=== PATIENT | male | born 1970 | race Caucasian/White ===

== ENCOUNTER 2023-08-20 16:14 | Emergency (ER) | payer OTHER, SELFPAY ==
[2023-08-20 16:20] VITALS: BP 166/97; PULSE 83; RESP 20; TEMP 37.2; O2SAT 96; BMI 37.7
--- NOTE | 2023-08-20 16:23 | ED.HEATRA1 ---
HPI - Head Injury General Chief complaint: Wound/Laceration Stated complaint: HEAD INJURY Time Seen by Provider: 08/20/23 16:22 History of Present Illness HPI Narrative: Patient is a 53-year-old male who presents to the emergency department for the evaluation of a laceration to the top of the head. Patient is an employee at a local [employer], he states a tub came down and hit him on the top of the head. He had no loss of consciousness. He denies visual changes, neck pain, nausea or vomiting. No peripheral paresthesias. No medications taken prior to arrival. He is on no blood thinners. Unknown last tetanus. Related Data Home Medications Medication Instructions Recorded Confirmed No Known Home Medications 08/20/23 08/20/23 Allergies Allergy/AdvReac Type Severity Reaction Status Date / Time No Known Drug Allergies Allergy Verified 08/20/23 16:23 Review of Systems ROS Constitutional Denies: fever or chills Ears, nose, mouth, and throat Denies: throat pain Cardiovascular Denies: chest pain Respiratory Denies: cough Gastrointestinal Denies: nausea or vomiting Musculoskeletal Denies: back pain, neck pain, extremity pain, extremity swelling or joint pain Integumentary/Breast Denies: rash Neurological Denies: headache, numbness in extremities or dizziness Endocrine Denies: excessive urination Hematologic/Lymphatic Denies: easy bruising Exam Narrative Exam Narrative: Gen.: Awake, alert, in no distress Head: Normocephalic, 6 cm laceration to the top of the head, laceration is oblique in the skin, minimal subcutaneous tissue exposure. No active bleeding. ENT: Moist mucous membranes, no dental injury; C-spine nontender Respiratory: No respiratory distress, lungs clear bilaterally Extremities: Moves extremities equally Psych: Normal mood and affect Neuro: No focal neuro deficit Skin: Warm, dry Constitutional Vital Signs, click to edit/add: Last Vital Signs Temp 98.9 F 08/20/23 16:20 Pulse 74 08/20/23 17:12 Resp 14 08/20/23 17:12 BP 152/88 H 08/20/23 17:12 Pulse Ox 97 08/20/23 17:12 O2 Del Method Room Air 08/20/23 17:12 Course Vital Signs Vital signs: Vital Signs Temperature 98.9 F 08/20/23 16:20 Pulse Rate 83 08/20/23 16:20 Respiratory Rate 20 08/20/23 16:20 Blood Pressure 166/97 H 08/20/23 16:20 Pulse Oximetry 96 08/20/23 16:20 Oxygen Delivery Method Room Air 08/20/23 16:20 Temperature 98.9 F 08/20/23 16:20 Pulse Rate 74 08/20/23 17:12 Respiratory Rate 14 08/20/23 17:12 Blood Pressure 152/88 H 08/20/23 17:12 Pulse Oximetry 97 08/20/23 17:12 Oxygen Delivery Method Room Air 08/20/23 17:12 MDM - Head Injury MDM Narrative Medical decision making narrative: No indication for CT scanning at this time as the patient has no other focal medical complaints. Tetanus was updated in the ER. Laceration repaired without difficulty. Please see procedure note for details. Kenbridge removed in 10 to 12 days with occupational health, either at this facility or at [facility]. Return to the ER if symptoms change or worsen. Wound care discussed at bedside. The laceration was anesthetized with 5 cc of 2% lidocaine with epi. The area was cleansed with Shur-Clens and irrigated with saline. No foreign body identified. 7 rachell were used to close the area, dressed with bacitracin and Telfa. Patient tolerated the procedure well. No significant blood loss. He remains neurovascularly intact. Medical Records Attestation: I reviewed the patient's medical records. Discharge Plan Discharge Chief Complaint: Wound/Laceration Clinical Impression: Closed head injury, Laceration of scalp Patient Disposition: Home, Self-Care Time of Disposition Decision: 16:54 Condition: Good Mode of Transportation: Private Vehicle Prescriptions / Home Meds: No Action No Known Home Medications Instructions: Head Injury (ED), Staple Care (ED), Head Laceration (ED) Additional Instructions: Ken[place] removed in 10 to 12 days with [facility] or occupational health at this facility Stand Alone Forms: Portal Instructions Referrals: [facility] Occup[facility] Center [Outside] - 1 week (Kenbridge removed in 10 to 12 days) Discharge Date/Time: 08/20/23 17:16
[2023-08-20] MEDS: ADACEL DIPH,PERTUSS(ACELL),TET VAC/PF 0.5 ML ADULT SYRINGE IM (16:31)
[2023-08-20] MEDS: BACITRACIN 0.9 GM PACKET 1 PACKET TOPICAL (16:33)
[2023-08-20] MEDS: LIDOCAINE HCL 2%-EPINEPHRINE 1:200,000 20 ML MDV INJ (16:34)
[2023-08-20 17:12] VITALS: BP 152/88; PULSE 74; RESP 14; O2SAT 97
== END 2023-08-20 17:16 | disposition home or self-care (01) ==
PROVIDERS: Emergency Provider Emergency Medicine; Family Provider Family Medicine
DX: S01.01XA Laceration without foreign body of scalp, initial encounter (principal); S09.8XXA Other specified injuries of head, initial encounter; W20.8XXA Other cause of strike by thrown, projected or falling object, initial encounter; Z23 Encounter for immunization
CPT/HCPCS: 12002; 90471; 90715; 99284